=== PATIENT | male | born 2000 | race Caucasian/White ===

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

== ENCOUNTER 2022-12-23 13:22 | Emergency (ER) | payer OTHER ==
--- OUTSIDE RECORDS SUMMARY | 2022-12-23 13:25 | XMS REPORT | Continuity of Care Document ---
:2000 Author Organization [facility] t Address [address] [place] [id number] Care Team Providers Name Role Phone Jeffrey Taya ROLLE Attending Clinician Pob1, Acute Care Clinic Attending Clinician Unavailable Fernando Valle Attending Clinician FERNANDO SHEPARD Attending Clinician Unavailable Doctor Unassigned, [place] Attending Clinician Unavailable Problems Condition Condition Condition Status Onset Resolution Last Treating Co mments Source Name Details Category Date Date Treatment Clinician Date No known No known Disease Unive rs active active ity of problems problems [facility] Allergies, Adverse Reactions, Alerts Allergy Allergy Status Severity Reaction(s) Onset Inactive Treating Comm ents Source Name Type Date Date Clinician NO KNOWN Drug Active Univers ALLERGIE Class ity of S [facility] Social History Social Habit Start Date Stop Date Quantity Comments Source Exposure to Not sure [facility] SARS-CoV-[address] [facility] [place] (event) [place] Sex Assigned At Universit y of [facility] History of Cigarette Smoker Universi ty of tobacco use [facility] Tobacco use and 2020-06-02 2020-06-02 [facility] Alcohol intake 2020-06-02 2020-06-02 Ex-drinker [facility] 00:00:00 00:00:00 (finding) [facility] Smoking Status Start Date Stop Date Source Unknown if ever smoked [facility] Current every day smoker 2020-06-02 00:00:00 Uni versity [facility] Medications Ordered Filled Start Stop Current Ordering Indication Dosage Frequency Signature Comments Components Source Medication Medication Date Date Medication? Clinician (SIG) Name Name No known No Univers medications [facility] No known No Univers medications [facility] Vital Signs Vital Name Observation Time Observation Value Comments Source Systolic blood 2020-06-02 21:00:00 117 mm[Hg] Univer sity of pressure [facility] [place] Branch Diastolic blood 2020-06-02 21:00:00 69 mm[Hg] Unive rsity of pressure [facility] Heart rate 2020-06-02 21:00:00 72 /min Universi ty of [facility] Respiratory rate 2020-06-02 21:00:00 17 /min Univ ersity of [facility] Oxygen saturation in 2020-06-02 21:00:00 95 /min University of Arterial blood by [facility] Pulse oximetry Branch Body temperature 2020-06-02 18:50:00 36.67 Elo Univ ersity of [facility] Body weight 2020-06-02 18:50:00 56.7 kg Universi ty of [facility] BMI 2020-06-02 18:50:00 17.94 kg/m2 Universi ty of [facility] Systolic blood 2020-06-02 18:18:00 124 mm[Hg] Univer sity of pressure [facility] Diastolic blood 2020-06-02 18:18:00 79 mm[Hg] Unive rsity of pressure [facility] Heart rate 2020-06-02 18:18:00 81 /min Universi ty of [facility] Body temperature 2020-06-02 18:18:00 37 Elo Univ ersity of [facility] Respiratory rate 2020-06-02 18:18:00 16 /min Univ ersity of [facility] Body height 2020-06-02 18:18:00 177.8 cm Universi ty [facility] Body weight 2020-06-02 18:18:00 56.972 kg Universi ty of [facility] BMI 2020-06-02 18:18:00 18.02 kg/m2 Universi ty of [facility] Oxygen saturation in 2020-06-02 18:18:00 98 /min University of Arterial blood by [facility] Pulse oximetry Branch Procedures Procedure Date / Time Performed Performing Clinician Sourc e EKG-12 LEAD 2020-06-02 21:06:20 Taya Murphy [facility] XR CHEST 1 VW 2020-06-02 20:32:22 Taya Murphy Kelle [facility] ADC / [facility] - DRUG 2020-06-02 19:49:00 aTya Murphy [facility] SCREEN TRIAGE [facility] EKG-12 LEAD 2020-06-02 19:32:44 Taya Murphy [facility] f [facility] Encounters Start End Encounter Admission Attending Care Care Encounter Source Date/Time Date/Time Type Type Clinicians Facility Department ID 2021-08-17 Emergency [facility] [id number] Univers 12:34:23 ity of [facility] 2020-06-02 2020-06-02 Emergency Taya Murphy [facility] [id number] Univers 13:45:00 17:18:00 Kelle Castillo [id number] i ty of [place] [id number] [facility] [id number] [address] 2020-06-02 2020-06-02 Urgent Pob1, Acute Care Clinic [facility] 1. [id number] Univers 13:08:41 13:47:08 Fernando Hurst [facility] [id number] ity of [place] [id number] Shawn as Professio [id number] [address] Office Building [address] 2020-06-02 2020-06-02 [facility] [id number] Univers 13:20:00 13:20:00 FERNANDO ity of [facility] 2020-06-02 2020-06-02 [facility] [id number] Univers 13:00:00 13:00:00 FERNANDO isaiah of [facility] 2020-06-02 2020-06-02 Letter Doctor GEE [id number] Univers 00:00:00 00:00:00 (Out) Unassigned, DUNCAN [id number] ity of [place] [facility] [id number] Shawn as [id number] [address] 2020-06-02 2020-06-02 Letter Doctor GEE [id number] Univers 00:00:00 00:00:00 (Out) Unassigned, DUNCAN [id number] ity of [place] [facility] [id number] Shawn as [phone] [address] Results Test Description Test Time Test Comments Results Result Sourc e Comments XR CHEST 1 VW 2020-05-20 FINDINGS/IMPRESSION: U niversity of 4 The lungs are clear. [facility] 20:36:24 No consolidation. No Bran ch pleural effusion or pneumothorax.The cardiomediastinal silhouette is normal. No acute bony abnormality.EXAM: XR CHEST 1 VWHISTORY: chest pain COMPARISON: None. [facility], Radiant Results Inft User - 06/02/2020 3:37 PM CDTEXAM: XR CHEST 1 VWHISTORY: chest pain COMPARISON: None.IMPRESSIONFINDIN GS/IMPRESSION:The lungs are clear. No consolidation. No pleural effusion or pneumothorax.The cardiomediastinal silhouette is normal. No acute bony abnormality. [facility] - DRUG SCREEN TRIAGE 2020-06-02 20:18:00 Test Item Value Reference Range Interpretation Comme nts BENZO U (test code = Negative Negative 3977130815) PELON U (test code = Negative Negative 0681679537) AMPHET (test code = Negative Negative 6748277861) THC (test code = Presumptive Positive Negative A Con firmation of 5465119247) Presumptive Pos itive THC result requires physician order . METHADONE (test code = Negative Negative 3833146800) Meth U (test code = Negative Negative 2925548849) OPIATES (test code = Negative Negative 7627095746) Cocaine Metabolite (test Negative Negative code = 2757058951) PROPOXY (test code = Negative Negative 8430056031) Tric U (test code = Negative Negative 0038279303) PCP (test code = Negative Negative 5939499501) OXYCOD (test code = Negative Negative 1465938651) MITCHEL (test code = MITCHEL) Urine Drug Cutoff Ranges Benzodiazepines: ? ? 150 ng/mLBarbiturates: ?200 ng/mLAmphetamine: ? 500 ng/mLCannabinoids: ?50 ?ng/mLMethadone: ? 200 ng/mLMethamphetamine: ? ? 500 ng/mL Opiates: ? 100 ng/mL or 2000 ng/mLCocaine: ? 150 ng/mLPropoxyphene: ?300 ng/mLTricyclics: ?300 ng/mLOxycodone: ? 100 ng/mLPCP: ? 25 ?ng/mL The results are to be used only for medical (i.e., treatment) purposes. Unconfirmed screening results must not be used for non-medical purposes (e.g., employment testing, legal testing). Lab Interpretation (test Abnormal code = 66167-1) [facility]
[2022-12-23 15:38] LABS: Absolute Lymphocytes (CBC) 1.7 K/uL (0.7-4.9); Lymphocytes % 17.9 % (15.3-44.8); MCV 91.5 fL (80-100); MPV 8.1 fL (7.6-11.3); RBC Red Blood Cell Count 4.92 M/uL (4.33-5.43)
[2022-12-23 15:41] LABS: Protime INR 1.14
[2022-12-23] MEDS ORDERED: LORazepam 2 MG/ML VIAL ONE ×2 (15:46→18:58)
[2022-12-23 16:44] LABS: Barbiturates NEGATIVE (NEGATIVE); Benzodiazepines NEGATIVE (NEGATIVE); Cocaine NEGATIVE (NEGATIVE); METHAMPHETAM NEGATIVE (NEGATIVE); Methadone NEGATIVE (NEGATIVE); Opiates NEGATIVE (NEGATIVE); Phencyclidine NEGATIVE (NEGATIVE); THC Cannibis POSITIVE (NEGATIVE)
[2022-12-23 16:48] LABS: ALT/SGPT 23 U/L (16-61); AST/SGOT 15 U/L (15-37); Albumin 4.7 g/dL (3.4-5.0); Alkaline Phosphatase 85 U/L (45-117); BUN Blood Urea Nitrogen 6 mg/dL (7-18); Bicarbonate 29 mmol/L (21-32); Bilirubin Direct 0.3 mg/dL (0-0.2); Bilirubin Total 0.9 mg/dL (0.2-1.0); Glomerular Filtration Rate 111 ml/min (=/>90); Glucose Level 101 mg/dL (74-106); Potassium 3.5 mmol/L (3.5-5.1); Protein, Total 7.9 g/dL (6.4-8.2); Sodium Level 140 mmol/L (136-145)
--- NOTE | 2022-12-23 18:51 | ER ---
Nurse's Notes [facility] Name: Zafar See Age: 22 yrs Sex: Male : 2000 Arrival Date: 12/23/2022 Time: 13:25 Bed 16 Private MD: Jay Gordon W Diagnosis: Suicidal ideations;Auditory hallucinations Presentation: 12/23 13:47 Chief complaint: Patient states: auditory hallucinations, pt states "I think I am aa5 hearing people and it makes me want to hurt myself". 13:47 Risk Assessment: Do you want to hurt yourself or someone else? Patient reports aa5 desire/thoughts of hurting themselves or someone else. Provider notified. Onset of symptoms was December 23, 2022. 13:47 Acuity: MYKEL 2 aa5 13:47 Method Of Arrival: Ambulatory aa5 13:47 Coronavirus screen: At this time, the client does not indicate any symptoms associated aa5 with coronavirus-19. Ebola Screen: Patient denies travel to an Ebola-affected area in the 21 days before illness onset. Initial Sepsis Screen: Does the patient meet any 2 criteria? No. Patient's initial sepsis screen is negative. Does the patient have a suspected source of infection? No. Patient's initial sepsis screen is negative. Historical: - Allergies: 13:50 No Known Allergies; aa5 - Home Meds: 13:50 None [Active]; aa5 - PMHx: 13:50 Anxiety; Depression; aa5 - PSHx: 13:50 None; aa5 - Immunization history:: Adult Immunizations not immunized. - Social history:: Smoking status: Reported history of juuling and/or vaping. Assessment: 18:18 Reassessment: pt brought back to ER room. mb9 Vital Signs: 13:47 BP 141 / 91; Pulse 73; Resp 22 S; Temp 98.0(TE); Pulse Ox 99% on R/A; Weight 61.23 kg aa5 (R); Height 5 ft. 9 in. (175.26 cm) (R); 13:47 Body Mass Index 19.93 (61.23 kg, 175.26 cm) aa5 ED Course: 13:25 Patient arrived in ED. mr 13:25 Jay Gordon MD is Private Physician. mr 13:41 Epifanio Boggs PA is PHCP. marti 13:41 Juan Carlos Florentino DO is Attending Physician. [facility] 13:48 Arm band placed on. aa5 13:49 Triage completed. aa5 15:30 Inserted saline lock: 22 gauge in left antecubital area, using aseptic technique. Blood iw collected. 15:39 Whit Belcher, RN is Primary Nurse. iw 15:44 Whit Belcher RN is Primary Nurse. iw 16:[address] [facility] to have a screener evaluate pt. bd Administered Medications: 15:44 Drug: Ativan (LORazepam) 1 mg Route: IVP; Site: left antecubital; iw Outcome: 18:50 ER care complete, transfer ordered by . marti Signatures: Kristen Hill Joel, PA PA jmm Rivera, Mary Whit Belcher RN RN Chana Espinosa RN RN aa5 Tracy Pisano RN RN mb9 Corrections: (The following items were deleted from the chart) 13:53 13:47 61.23 kg Reported; Height 5 ft. 9 in. Reported; BMI: 19.9; aa5 aa5 13:54 13:47 Pulse 73bpm; Resp 22bpm; Spontaneous; Pulse Ox 99% RA; Temp 98.0F Temporal; 61.23 aa5 kg Reported; Height 5 ft. 9 in. Reported; BMI: 19.9; aa5
--- NOTE | 2022-12-23 18:51 | EDPHYS ---
Physician Documentation [facility] Name: Zafar See Age: 22 yrs Sex: Male : 2000 Arrival Date: 12/23/2022 Time: 13:25 Bed 16 Private MD: Jay Gordon W ED Physician Juan Carlos Florentino HPI: 12/23 13:51 This 22 yrs old Male presents to ER via Ambulatory with complaints of Mental Evaluation.jmm 13:51 The patient presents to the emergency department with psychosis, has experienced jmm auditory hallucinations, suicide ideation. Onset: The symptoms/episode began/occurred gradually. Associated signs and symptoms: Pertinent negatives: shortness of breath. Is a 22-year-old male with history of anxiety depression and previous suicide attempts the presents emerged department with complaints of auditory hallucinations that he believes are coming from people. Patient states this scares him to the point that he wants to hurt himself. Denies any homicidal ideations.. Historical: - Allergies: 13:50 No Known Allergies; aa5 - Home Meds: 13:50 None [Active]; aa5 - PMHx: 13:50 Anxiety; Depression; aa5 - PSHx: 13:50 None; aa5 - Immunization history:: Adult Immunizations not immunized. - Social history:: Smoking status: Reported history of juuling and/or vaping. ROS: 13:51 Constitutional: Negative for fever, chills, and weight loss, Cardiovascular: Negative jmm for chest pain, palpitations, and edema, Respiratory: Negative for shortness of breath, cough, wheezing, and pleuritic chest pain. 13:51 Psych: Positive for suicidal ideation. 13:51 All other systems are negative. Exam: 13:51 Constitutional: This is a well developed, well nourished patient who is awake, alert, jmm and in no acute distress. Head/Face: atraumatic. Eyes: EOMI, no conjunctival erythema appreciated ENT: Moist Mucus Membranes Neck: Trachea midline, Supple Chest/axilla: Normal chest wall appearance and motion. Cardiovascular: Regular rate and rhythm. No edema appreciated Respiratory: Normal respirations, no respiratory distress appreciated Abdomen/GI: Non distended Back: Normal ROM Skin: General appearance color normal MS/ Extremity: Moves all extremities, no obvious deformities appreciated, no edema noted to the lower extremities Neuro: Awake and alert 13:51 Psych: Behavior/mood is anxious, Affect is Patient having thoughts of suicide. Delusions/hallucinations are present and described as Auditory hallucinations. Vital Signs: 13:47 BP 141 / 91; Pulse 73; Resp 22 S; Temp 98.0(TE); Pulse Ox 99% on R/A; Weight 61.23 kg aa5 (R); Height 5 ft. 9 in. (175.26 cm) (R); 13:47 Body Mass Index 19.93 (61.23 kg, 175.26 cm) aa5 MDM: 13:51 Patient medically screened. [facility] 18:14 Differential diagnosis: acute psychotic break, suicidal ideations. Data reviewed: vital [facility] signs, nurses notes. Consideration of Admission/Observation. Management of patient was discussed with the following: Implant Polisher: Stewart babin, whom recommends inpatient. I considered the following discharge prescriptions or medication management in the emergency department Medications were administered in the Emergency Department. See MAR. Historians other than the Patient: Mother. Counseling: I had a detailed discussion with the patient and/or guardian regarding: the historical points, exam findings, and any diagnostic results supporting the discharge/admit diagnosis, lab results, the need to transfer to another facility. 12/23 13:52 Order name: Acetaminophen [facility] 12/23 13:52 Order name: Basic Metabolic Panel [facility] 12/23 13:52 Order name: CBC with Diff [facility] 12/23 13:52 Order name: ETOH Level [facility] 12/23 13:52 Order name: Hepatic Function [facility] 12/23 13:52 Order name: PT-INR [facility] 12/23 13:52 Order name: Ptt, Activated [facility] 12/23 13:52 Order name: Salicylate [facility] 12/23 13:52 Order name: Urine Drug Screen [facility] 12/23 13:52 Order name: EKG; Complete Time: 13:53 [facility] 12/23 13:52 Order name: EKG - Nurse/Tech [facility] 12/23 13:52 Order name: IV Saline Lock; Complete Time: 15:30 [facility] 12/23 13:52 Order name: Labs collected and sent; Complete Time: 15:30 [facility] 12/23 13:52 Order name: Suicide Screening ([place]) [facility] 12/23 13:52 Order name: Urine Dipstick-Ancillary (obtain specimen); Complete Time: 15:30 [facility] 12/23 15:42 Order name: Protime (+INR); Complete Time: 15:47 EDMS 12/23 15:42 Order name: PTT, Activated Partial Thromb; Complete Time: 15:47 EDMS 12/23 15:44 Order name: CBC with Automated Diff; Complete Time: 15:47 EDMS 12/23 16:31 Order name: Alcohol Serum/Plasma; Complete Time: 16:36 EDMS 12/23 16:42 Order name: Salicylates Level; Complete Time: 16:43 EDMS 12/23 16:45 Order name: Urine Drug Screen; Complete Time: 16:45 EDMS 12/23 16:51 Order name: Basic Metabolic Panel; Complete Time: 16:52 EDMS 12/23 16:51 Order name: Liver (Hepatic) Function; Complete Time: 16:52 EDMS 12/23 16:51 Order name: Acetaminophen Level; Complete Time: 16:52 EDMS Administered Medications: 15:44 Drug: Ativan (LORazepam) 1 mg Route: IVP; Site: left antecubital; iw Disposition: 18:31 Co-signature as Attending Physician, Juan Carlos Florentino DO I was immediately available on-site ms3 in the Emergency Department for consultation in the care of the patient. Disposition Summary: 12/23/22 18:50 Transfer Ordered Accepting Physician: Psychiatry jm Transfer Location: [facility] Facility [facility] Reason: Higher level of care jmm Condition: Stable jmm Problem: new jmm Symptoms: are unchanged jmm Diagnosis - Suicidal ideations jmm - Auditory hallucinations jmm Forms: - Medication Reconciliation Form jmm - SBAR form jmm Signatures: Dispatcher [employer] EDMS Epifanio Boggs PA PA jmm Whit Belcher RN RN iw Chana Espinosa RN RN aa5 Juan Carlos Florentino DO DO ms3
[2022-12-24 10:19] LABS: SARS-CoV-2 Antigen Rapid Res Negative (Negative)
[2022-12-24] MEDS ORDERED: LORazepam 2 MG/ML VIAL ONE ×2 (11:59→18:04)
--- NOTE | 2022-12-24 17:33 | EKG ---
Test Date: 2022-12-23 Test Time: 20:08:02 Pt Escort: FRANCISCO MEASUREMENT RESULTS: Intervals: Rate: 62 TN: 148 QRSD: 102 QT: 440 QTc: 446 [place]: P: 75 TN: 148 QRS: 88 T: 71 INTERPRETIVE STATEMENTS: Normal sinus rhythm Minimal voltage criteria for LVH, may be normal variant Borderline ECG Compared to ECG 06/25/2021 23:15:29 Left ventricular hypertrophy now present Electronically Signed On 12-24-22 17:31:15 [employer] by Wallace Guerrero
[2022-12-24 20:10] VITALS: TEMP 97
[2022-12-24 20:13] VITALS: BP 147/72; O2SAT 100
== END 2022-12-24 18:41 | disposition home or self-care (01) ==
LOC: ER 13:22
DX: R45.851 Suicidal ideations (principal); R44.0 Auditory hallucinations; Z20.822 Contact with and (suspected) exposure to COVID-19
CPT/HCPCS: 93005; 85025; 80048; 36415; 85610; 80076; 85730; 80307; 87811; G0480 ×3